=== PATIENT | female | born 1945 | race Caucasian/White ===

== ENCOUNTER 2019-05-07 15:52 | Emergency (ER) | payer OTHER ==
[2019-05-07] MEDS: ACETAMINOPHEN 325 MG TAB PO (18:16)
== END 2019-05-07 18:46 | disposition home or self-care (01) ==
LOC: FTE 15:52
DX: S82.92XA Unspecified fracture of left lower leg, initial encounter for closed fracture (principal); S92.902A Unspecified fracture of left foot, initial encounter for closed fracture; E11.22 Type 2 diabetes mellitus with diabetic chronic kidney disease; I12.0 Hypertensive chronic kidney disease with stage 5 chronic kidney disease or end stage renal disease; N18.6 End stage renal disease; W18.30XA Fall on same level, unspecified, initial encounter; Y92.9 Unspecified place or not applicable; Z99.2 Dependence on renal dialysis
CPT/HCPCS: 29515; 73610; 73630-LT; 99283-25